=== PATIENT | male | born 1970 | race African-American/Black ===

== ENCOUNTER 2023-06-21 07:31 | Day surgery (SDC) | payer BC, SELFPAY ==
--- NOTE | 2023-06-20 13:43 | EKG ---
Test Date: 2023-06-16 Test Time: 15:48:57 Relocation Manager: POPPY MEASUREMENT RESULTS: Intervals: Rate: 69 ME: 144 QRSD: 78 QT: 386 QTc: 413 [place]: P: 82 ME: 144 QRS: -40 T: 66 INTERPRETIVE STATEMENTS: Sinus rhythm with premature atrial complexes Left axis deviation Abnormal ECG No previous ECG available for comparison Electronically Signed On 06-20-23 13:31:20 TALLIER by Zachary Hunt
[2023-06-21] MEDS ORDERED: Ringers Lactate 1,000 ML IV ONE (07:45)
[2023-06-21 08:04] VITALS: O2SAT 100
[2023-06-21] MEDS ORDERED: LIDOCAINE 1% MPF 5 ML VIAL ONE (09:39)
[2023-06-21] MEDS ORDERED: propofoL 200 MG/20 ML VIAL IV ONE ×2 (09:39→09:40)
[2023-06-21] MEDS ORDERED: GLYCOPYRROLATE 0.2 MG/ML SYR ONE (10:44)
[2023-06-21 12:51] VITALS: BP 133/83; TEMP 97
== END 2023-06-21 11:08 | disposition home or self-care (01) ==
LOC: OR 07:31
PROVIDERS: ATTEND Internal Medicine Gastroenterology
PROC: 0DBH8ZX Excision of Cecum, Via Natural or Artificial Opening Endoscopic, Diagnostic (ICD-10-PCS; 2023-06-21)
PROC: 0DB68ZX Excision of Stomach, Via Natural or Artificial Opening Endoscopic, Diagnostic (ICD-10-PCS; 2023-06-21)
PROC: 0DB78ZX Excision of Stomach, Pylorus, Via Natural or Artificial Opening Endoscopic, Diagnostic (ICD-10-PCS; 2023-06-21)
PROC: 0DBK8ZX Excision of Ascending Colon, Via Natural or Artificial Opening Endoscopic, Diagnostic (ICD-10-PCS; principal; 2023-06-21 09:15)
PROC: 0DBP8ZX Excision of Rectum, Via Natural or Artificial Opening Endoscopic, Diagnostic (ICD-10-PCS; 2023-06-21 09:15)
DX: K57.30 Diverticulosis of large intestine without perforation or abscess without bleeding (principal); K92.1 Melena; R19.4 Change in bowel habit; R10.33 Periumbilical pain; K30 Functional dyspepsia; R12 Heartburn; R14.2 Eructation; R14.0 Abdominal distension (gaseous); K29.50 Unspecified chronic gastritis without bleeding; D12.2 Benign neoplasm of ascending colon; K63.5 Polyp of colon; K64.8 Other hemorrhoids; A63.0 Anogenital (venereal) warts; K44.9 Diaphragmatic hernia without obstruction or gangrene; Z80.0 Family history of malignant neoplasm of digestive organs; I10 Essential (primary) hypertension
CPT/HCPCS: 93005; 88312; 88305; 45380; 43239; J2704; J2001; J7120

== ENCOUNTER 2023-07-31 09:42 | Day surgery (SDC) | payer BC ==
[2023-07-27 16:02] LABS: Absolute Lymphocytes (CBC) 2.5 K/uL (0.7-4.9); Hematocrit 43.8 % (39.6-49.0); Lymphocytes % 32.5 % (15.3-44.8); MCV 86.2 fL (80-100); MPV 7.6 fL (7.6-11.3); Platelets 254 thou/uL (152-406); RBC Red Blood Cell Count 5.08 M/uL (4.33-5.43)
[2023-07-27 16:18] LABS: Potassium 3.8 mEq/L (3.5-5.1)
--- NOTE | 2023-07-27 19:37 | RAD REPORT ---
EXAM DESCRIPTION: Oralia Linares (2 Views)07/27/2023 3:56 pm CLINICAL HISTORY: Preop for rectal surgery COMPARISON: None FINDINGS: The lungs appear clear of acute infiltrate. The heart is normal size IMPRESSION: No acute abnormalities displayed
[2023-07-31] MEDS ORDERED: CEFAZOLIN SODIUM 1 GM/VIAL ONE (10:00)
[2023-07-31] MEDS ORDERED: Ringers Lactate 1,000 ML IV ONE (10:00)
[2023-07-31] MEDS ORDERED: propofoL 200 MG/20 ML VIAL IV ONE (10:36)
[2023-07-31] MEDS ORDERED: MIDAZOLAM HCL 2 MG/2 ML INJ ONE (10:36)
[2023-07-31] MEDS ORDERED: LIDOCAINE 1% MPF 5 ML VIAL ONE (10:36)
[2023-07-31] MEDS ORDERED: dexAMETHasone 4 MG/ML VIAL ONE (10:36)
[2023-07-31] MEDS ORDERED: ONDANSETRON 4 MG/2 ML VIAL ONE (10:36)
[2023-07-31] MEDS ORDERED: FENTANYL CITR 100 MCG/2 ML ONE (10:37)
[2023-07-31] MEDS ORDERED: KETOROLAC 30 MG/ML INJ ONE (11:20)
[2023-07-31] MEDS: HYDROMORPHONE HCL 1 MG/ML INJ ONE ×4 (12:15→12:31)
--- NOTE | 2023-07-31 12:34 | P.BOP ---
Preoperative diagnosis: perianal mass Postoperative diagnosis: same Primary procedure: EUA, Anoscopy, rigid proctoscopy, excisional biopsy perianal mass Estimated blood loss: <10cc Specimen: mass anal canal Findings: multiple perianal mass Anesthesia: General Complications: None Drain(s): Other (surgicell) Transferred to: Recovery Room Condition: Good
[2023-07-31 12:48] VITALS: TEMP 97; O2SAT 100
[2023-07-31] MEDS ORDERED: HYDROCODONE/APAP 10/325 TAB ONE (13:07)
[2023-07-31 13:09] VITALS: BP 146/90
--- NOTE | 2023-08-01 14:27 | OP ---
Surgeon: Robert Ibrahim MD Preoperative Diagnoses: Perianal mass. Postoperative Diagnosis: Perianal mass. Procedures: Examination under anesthesia, anoscopy, rigid proctoscopy, excisional biopsy of multiple perianal masses in the anal canal. Estimated Blood Loss: Less than 10 cc. Specimen: Mass in the anal canal. Findings: Multiple perianal masses. Anesthesia: General plus local. Packing: Surgicel. Indication: This is a case of a 53-year-old patient sent to us due to perianal mass in the anal vivien l. He can be seen with close observation. It was found by the doctor, they did a biopsy of that are a. They believed it could be condyloma, even though he might have a condyloma in that area does not mean that perianal mass have to be condyloma, so he was sent to us for EUA, anoscopy and excisional b iopsy of perianal mass. The benefits, alternatives, and risks of EUA anoscopy, proctoscopy, excision biopsy of perianal mass fully explained, which include, but not limited to infection, bleeding, robbie ge to adjacent structures, anesthesia complication, recurrence, AR, and he also understands this may not relieve the symptoms. He might need more than one surgical intervention. He understood, signed a consent. Description Of Procedure: The patient was brought to the operating room, placed in supine position. Anesthesia was done without complication. The anal area was prepped and draped in a sterile fashion . The patient was placed in lithotomy position with proper protection before that. Time-out was elisa led. Then, after that, a rectal examination was done. We do indeed see some lesions that it is hard to see. This is condyloma with the hemorrhoid underneath, 1 of them is so close that we have to ope n the anoderm to be able to get this lesion on his own. See the rest of the dictation for details. Other than that, we see most of the lesions on the anal canal itself and that is why the anoscopy hel p in resection. EBL less than 10 cc. The patient examination was done by rigid proctosco py. Then, with the help of anoscopy, we were able to identify more than 1 lesion. It is in the anal canal itself or likely mention before the hemorrhoid is attached to it and 1 of them. We opened the anoderm trying to separate the hemorrhoid but have to come with the specimen itself. Once again, we have to get some gross negative margins because we cannot rule out any other pathology in that regio n, so we did that. I opened the anoderm, separate this lesion from the center, transect that with a Harmonic scalpel. The area was irrigated. Hemostasis was obtained and closed with 3-0 chromic. The re is about 2 more lesions around the area that was also present, those may look like a condyloma and so we removed that and making sure we have negative margins and sent that for specimen. Once again, we have more than 1 lesion in that region. Those areas were left to close by secondary intention. Local anesthesia was applied. Surgicel was placed in that region. Pressure was applied and then aft er that, there was no bleeding. I proceeded to remove the anoscope. The patient tolerated the proce dure well. The patient was sent to recovery in stable condition. Disposition: Home. Activity: As tolerated. No heavy lifting. Follow up in my office in 1 week. Call for appointment at [phone]. Sitz baths 4 times a day and after every bowel movement. VIVIAN/GELACIO Voice ID: [id number] Report ID: [id number]
== END 2023-07-31 13:30 | disposition home or self-care (01) ==
LOC: OR 09:42
PROVIDERS: ATTEND Surgery
PROC: 0DJD8ZZ Inspection of Lower Intestinal Tract, Via Natural or Artificial Opening Endoscopic (ICD-10-PCS; 2023-07-31)
PROC: 0DBQ8ZX Excision of Anus, Via Natural or Artificial Opening Endoscopic, Diagnostic (ICD-10-PCS; principal; 2023-07-31 12:45)
DX: A63.0 Anogenital (venereal) warts (principal)
CPT/HCPCS: 85025; 80048; 36415; 88305; 71046; 46922; 45300; J2704; J1100; J2001; J2250; J3010; J1170 ×2; J2405; J7120; J0690; 88304

== ENCOUNTER → 2023-10-04 | Emergency (ER) | payer BC ==
[~2023-10-04] MED LIST: DIPHENOX/ATROP SULF 1 TAB PO ONE; NA CHLORIDE 0.9% 1,000 ML ONE; ONDANSETRON 4 MG/2 ML VIAL ONE; PROMETHAZINE 25 MG TABLET ONE
--- OUTSIDE RECORDS SUMMARY | 2023-10-04 04:52 | XMS REPORT | Continuity of Care Document ---
Author Name Unknown Address [address] [facility] [address] [place] [id number] [facility] thconnect Address [address] [facility] [address] [place] [address] Care Team Providers Care Cardiopulmonary Physical Therapist Name Role Phone BETZAIDA Attending Clinician Unavailable Mable Penny Attending Clinician [phone] Kayleen Rg DO Attending Clinician Doctor Unassigned, [place] Attending Clinician U CAROL Vazquez Attending Clinician Unavailabl e BETZAIDA Admitting Clinician Unavailable Payers Payer Name Policy Type Policy Number Effective Date Expirati on Date Source [facility] [id number] 2 00:00:00 [facility] [id number] 10-15 00:00:00 [facility] [id number] 2012 00:00:[place] [id number] 2023 00:00:00 GROUP \T\ [employer] [id number] 1989 00:00:00 [place] [id number] 2021 00:00:00 Problems Condition Name Condition Details Condition Category Status Onset Date Resolution Date Last Treatment Date Treating Clinician Comments Source Pain of bilateral knee joints Pain of Bilateral Knee Joints Problem Active 03-21 00:00: 00 [facility] Mixed hyperlipid emia Mixed Hyperlipid emia Problem Active 03-21 00:00: 00 [facility] Essential hypertensi on Essential Hypertensi on Problem Active 03-21 00:00: 00 [facility] Chronic obstructiv e lung disease Chronic Obstructiv e Lung Disease Problem Active 03-21 00:00: 00 [facility] Irritable bowel syndrome Irritable Bowel Syndrome Problem Active 03-21 00:00: 00 [facility] Chronic low back pain Chronic Low Back Pain Problem Active 03-21 00:00: 00 [facility] Marijuana user Marijuana User Problem Active 03-21 00:00: 00 [facility] Anxiety Anxiety Problem Active 08-04 00:00: 00 [facility] No known active problems No known active problems Disease [facility] Allergies, Adverse Reactions, Alerts Allergy Name Allergy Type Status Severity Reaction(s) Onset Date Inactive Date Treating Clinician Comments Source Iodine Allergy to substanc e Active Anaphylaxis 07-17 00:00: 00 [facility] Iodine Propensi ty to adverse reaction s Active Unknown - See comments 12-05 00:00: 00 [facility] Tramadol Propensi ty to adverse reaction s Active Unknown - See comments 12-05 00:00: 00 [facility] TRAMADOL DRUG INGREDI Active Unknown-Cmnt 12-05 00:00: 00 [facility] IODINE DRUG INGREDI Active Unknown-Cmnt 12-05 00:00: 00 [facility] NO KNOWN ALLERGIE S Drug Class Active [facility] Metformi n Allergy to substanc e Active [facility] Tramadol Allergy to substanc e Active [facility] Social History Social Habit Start Date Stop Date Quantity Comments Source Exposure to SARS-CoV-2 (event) Not sure [facility] Sex Assigned At 1970 00:00:00 1970 00:00:00 [facility] Smoking Status Start Date Stop Date Source Light Tobacco Smoker [facility] Unknown if ever smoked [facility] Medications Ordered Medication Name Filled Medication Name Start Date Stop Date Current Medication? Ordering Clinician Indication Dosage Frequency Signature (SIG) Comments Components Source epinephrine 0.3 mg/0.3 mL injection, auto-inject or INJECT DIRECTED epinephrine 0.3 mg/0.3 mL injection, auto-inject or INJECT DIRECTED 03-21 00:00: 00 No epinephrin e 0.3 mg/0.3 mL injection, auto-injec tor INJECT DIRECTED [facility] HYDROcodone -acetaminop hen (NORCO 5) 5-325 mg tablet 1 tablet 12-05 20:45: 00 12-05 19:39 :00 No 1{tbl} 1 tablet, Oral, ONCE, 1 dose, 12/05/20 at 1545, HAMIDA [facility] amlodipine 5 mg tablet TAKE 1 TABLET BY MOUTH EVERY DAY HOLD IF TOP BLOOD PRESSURE IS ABOVE 110 amlodipine 5 mg tablet TAKE 1 TABLET BY MOUTH EVERY DAY HOLD IF TOP BLOOD PRESSURE IS ABOVE 110 No amlodipine 5 mg tablet TAKE 1 TABLET BY MOUTH EVERY DAY HOLD IF TOP BLOOD PRESSURE IS ABOVE 110 [facility] acetylcyste ine 600 mg capsule Take 1 capsule twice a day by oral route. acetylcyste ine 600 mg capsule Take 1 capsule twice a day by oral route. No 1capsul e(s) BID acetylcyst eine 600 mg capsule Take 1 capsule twice a day by oral route. [facility] albuterol sulfate HFA 90 mcg/actuati on aerosol inhaler Inhale 2 puffs every 4-6 hours by inhalation route. albuterol sulfate HFA 90 mcg/actuati on aerosol inhaler Inhale 2 puffs every 4-6 hours by inhalation route. No 2puff(s ) Q5H albuterol sulfate HFA 90 mcg/actuat ion aerosol inhaler Inhale 2 puffs every 4-6 hours by inhalation route. [facility] amlodipine 5 mg tablet Take 1 tablet every day by oral route for 90 days. amlodipine 5 mg tablet Take 1 tablet every day by oral route for 90 days. No 1 Q1D amlodipine 5 mg tablet Take 1 tablet every day by oral route for 90 days. [facility] EpiPen 2-Timmy 0.3 mg/0.3 mL injection, auto-inject or Take 1 auto as needed by injection route. EpiPen 2-Timmy 0.3 mg/0.3 mL injection, auto-inject or Take 1 auto as needed by injection route. No 1auto(s ) EpiPen 2-Timmy 0.3 mg/0.3 mL injection, auto-injec tor Take 1 auto as needed by injection route. [facility] fenofibrate nanocrystal lized 145 mg tablet Take 1 tablet every day by oral route for 90 days. fenofibrate nanocrystal lized 145 mg tablet Take 1 tablet every day by oral route for 90 days. No 1 Q1D fenofibrat e nanocrysta llized 145 mg tablet Take 1 tablet every day by oral route for 90 days. [facility] acetylcyste ine 600 mg capsule Take 1 capsule twice a day by oral route. acetylcyste ine 600 mg capsule Take 1 capsule twice a day by oral route. No 1capsul e(s) BID acetylcyst eine 600 mg capsule Take 1 capsule twice a day by oral route. [facility] albuterol sulfate HFA 90 mcg/actuati on aerosol inhaler Inhale 2 puffs every 4-6 hours by inhalation route. albuterol sulfate HFA 90 mcg/actuati on aerosol inhaler Inhale 2 puffs every 4-6 hours by inhalation route. No 2puff(s ) Q5H albuterol sulfate HFA 90 mcg/actuat ion aerosol inhaler Inhale 2 puffs every 4-6 hours by inhalation route. [facility] amlodipine 5 mg tablet Take 1 tablet every day by oral route for 90 days. amlodipine 5 mg tablet Take 1 tablet every day by oral route for 90 days. No 1 Q1D amlodipine 5 mg tablet Take 1 tablet every day by oral route for 90 days. [facility] EpiPen 2-Timmy 0.3 mg/0.3 mL injection, auto-inject or Take 1 auto as needed by injection route. EpiPen 2-Timmy 0.3 mg/0.3 mL injection, auto-inject or Take 1 auto as needed by injection route. No 1auto(s ) EpiPen 2-Timmy 0.3 mg/0.3 mL injection, auto-injec tor Take 1 auto as needed by injection route. [facility] fenofibrate nanocrystal lized 145 mg tablet Take 1 tablet every day by oral route for 90 days. fenofibrate nanocrystal lized 145 mg tablet Take 1 tablet every day by oral route for 90 days. No 1 Q1D fenofibrat e nanocrysta llized 145 mg tablet Take 1 tablet every day by oral route for 90 days. [facility] No known medications No [facility] No known medications No [facility] Vital Signs Vital Name Observation Time Observation Value Comments S ource BP Systolic 2023-03-21 00:00:00 110 mm[Hg] [facility] BMI (Body Mass Index) 2023-03-21 00:00:00 29 kg/m2 [facility] BP Diastolic 2023-03-21 00:00:00 82 mm[Hg] [facility] Body Weight 2023-03-21 00:00:00 3616 [oz_av] [facility] Height 2023-03-21 00:00:00 74 [in_i] [facility] BP Diastolic 2021-08-09 00:00:00 79 mm[Hg] [facility] Height 2021-08-09 00:00:00 74 [in_i] [facility] BMI (Body Mass Index) 2021-08-09 00:00:00 27 kg/m2 [facility] BP Systolic 2021-08-09 00:00:00 136 mm[Hg] [facility] Body Weight 2021-08-09 00:00:00 3360 [oz_av] [facility] BP Diastolic 2021-08-04 00:00:00 89 mm[Hg] [facility] Height 2021-08-04 00:00:00 74 [in_i] [facility] BMI (Body Mass Index) 2021-08-04 00:00:00 26.8 kg/m2 [facility] BP Systolic 2021-08-04 00:00:00 162 mm[Hg] [facility] Body Weight 2021-08-04 00:00:00 3337.6 [oz_av] [facility] Systolic blood pressure 2020-12-05 19:29:00 139 mm[Hg] [facility] Diastolic blood pressure 2020-12-05 19:29:00 84 mm[Hg] [facility] Heart rate 2020-12-05 19:29:00 87 /min [facility] Body temperature 2020-12-05 19:29:00 37.22 Yamila [facility] Respiratory rate 2020-12-05 19:29:00 18 /min [facility] Body weight 2020-12-05 19:29:00 95.255 kg [facility] Oxygen saturation in Arterial blood by Pulse oximetry 2020-12-05 19:29:00 99 /min [facility] Procedures Procedure Date / Time Performed Performing Clinician Source CONSENT/REFUSAL FOR DIAGNOSIS AND TREATMENT 2020-12-05 19:23:08 Doctor Unassigned, [place] [facility] NOTICE OF PRIVACY PRACTICES 2020-12-05 19:22:35 Doctor Unassigned, [place] [facility] - PRESCRIPTION / ORDER 2013-11-28 05:01:00 Doctor Unassigned, [place] [facility] Removal of Mari[facility] Appendectomy [facility] Knee Surgery [facility] Plan of Care Planned Activity Planned Date Details Comments Source Diagnostic Test Pending 2021-08-09 00:00:00 rapid flu (A+B) [code = rapid flu (A+B)] [facility] Diagnostic Test Pending 2021-08-09 00:00:00 rapid SARS CoV 2 Ag, QL IA, respiratory specimen [code = rapid SARS CoV 2 Ag, QL IA, respiratory specimen] [facility] Instructions [facility] Encounters Start Date/Time End Date/Time Encounter Type Admission Type Attending Clinicians Care Facility Care Department Encounter ID Source 2021-05-16 20:41:43 Emergency [facility] [id number] [facility] 2023-06-14 00:00:00 2023-06-14 00:00:00 Outpatient [facility] [id number] 2023-05-10 00:00:00 2023-05-10 00:00:00 Outpatient [facility] [id number] [facility] 2023-05-05 00:00:00 2023-05-05 00:00:00 Outpatient [facility] [id number] [facility] 2023-04-05 00:00:00 2023-04-05 00:00:00 Outpatient [facility] [id number] [facility] 2023-03-21 00:00:00 2023-03-21 00:00:00 Outpatient [facility] [id number] [facility] 2023-03-21 00:00:00 2023-03-21 00:00:00 Rony Ibarra, DO: [address], [address] , [place] [address] , Ph. [facility], DR. IBARRA [id number] [facility] 2023-01-17 00:00:00 2023-01-17 00:00:00 Outpatient [facility] [id number] [facility] 2022-12-13 00:00:00 2022-12-13 00:00:00 Outpatient [facility] [id number] [facility] 2022-11-30 13:11:30 2022-11-30 13:11:30 Outpatient [facility] [id number] Usman Henderson Markel 2022-11-08 00:00:00 2022-11-08 00:00:00 Outpatient [facility] [id number] [facility] 2022-11-03 13:08:01 2022-11-03 13:08:01 Outpatient [facility] [id number] Usman Jean Baptiste 2022-10-27 15:38:51 2022-10-27 15:38:51 Outpatient [facility] [id number] Usman Jean Baptiste 2022-10-04 00:00:00 2022-10-04 00:00:00 Outpatient [facility] [id number] [facility] 2022-08-30 00:00:00 2022-08-30 00:00:00 Outpatient [facility] [id number] [facility] 2022-08-30 00:00:00 2022-08-30 00:00:00 Outpatient [facility] [id number] [facility] 2022-07-27 00:00:00 2022-07-27 00:00:00 Outpatient [facility] [id number] [facility] 2021-10-29 03:29:00 2021-10-29 03:29:00 Outpatient [facility] [id number] [facility] 2021-10-29 03:29:00 2021-10-29 03:29:00 Outpatient [facility] [id number] [facility] 2021-09-24 04:03:00 2021-09-24 04:03:00 Outpatient [facility] [id number] [facility] 2021-08-20 04:31:00 2021-08-20 04:31:00 Outpatient [facility] [id number] [facility] 2021-08-09 11:05:00 2021-08-09 11:05:00 Outpatient [facility] [id number] [facility] 2021-08-09 00:00:00 2021-08-09 00:00:00 Outpatient Mable Penny [facility] [id number] 2021-08-09 00:00:00 2021-08-09 00:00:00 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 [facility] [id number] [facility] 2021-08-04 00:00:00 2021-08-04 00:00:00 Outpatient Mable Penny [facility] [id number] 2021-06-28 11:25:00 2021-06-28 11:25:00 Outpatient [facility] [id number] [facility] 2021-06-28 11:25:00 2021-06-28 11:25:00 Outpatient [facility] [id number] [facility] 2020-12-05 14:28:00 2020-12-05 15:09:00 Emergency Kayleen Rg [facility] [id number] [facility] 2020-12-05 00:00:00 2020-12-05 00:00:00 Orders Only Doctor Unassigned, [place] [facility] [id number] [facility] 2016-10-06 23:59:00 2016-10-06 23:59:00 Outpatient CAROL KNOWLES [facility] RAD [id number] [facility] 2013-11-28 00:00:00 2013-11-28 00:00:00 Orders Only Doctor Unassigned, [place] [facility] [id number] [facility] Results Test Description Test Time Test Comments Results Result Co mments Source CULTURE, URINE 2022-12-02 13:52:49 SPECIMEN NUMBER: [id number] CULTURE, URINE SPECIMEN NUMBER: [id number] SPECIMEN COMMENT: URINE SOURCE: URINE REPORT STATUS: FINAL FINAL REPORT: 12/02/2022 NO GROWTH AFTER 36 HOURS INCUBATION UNLESS OTHERWISE INDICATED, ALL TESTING PERFORMED AT [facility] [address] [place] [address] LIFE SCIENCE TEACHER: NANDA GUTIÉRREZ M.D. CLIA NUMBER [id number] [facility] [place] [id number] [facility], [id number] 09:25:00* Test Item Value Reference Range Interpretation Comme nts Negative (test code = Negative) xxx [facility]
[2023-10-04 05:33] LABS: Absolute Basophils 0.1 K/uL (0-0.5); Absolute Eosinophils 0.1 K/uL (0-0.5); Absolute Lymphocytes (CBC) 2.6 K/uL (0.7-4.9); Absolute Monocytes 0.9 K/uL (0.1-1.3); Absolute Neutrophil 7.3 K/uL (1.8-8.0); Basophils % 0.8 % (0-1.3); Eosinophils % 0.9 % (0-4.4); Hematocrit 46.4 % (39.6-49.0); Hemoglobin 15.6 g/dL (13.6-17.9); Lymphocytes % 23.7 % (15.3-44.8); MCH 29.3 pg (27.0-35.0); MCHC 33.6 g/dL (32.0-36.0); MCV 87.2 fL (80-100); MPV 7.6 fL (7.6-11.3); Monocytes % 8.1 % (3.3-12.3); Neutrophils % 66.5 % (41.7-73.7); Nucleated Red Blood Cells % 0.1 % (0-0); Platelets 307 thou/uL (152-406); RBC Red Blood Cell Count 5.32 M/uL (4.33-5.43); Red Cell Distribution Width 15.2 % (12.1-15.2)
[2023-10-04 05:48] LABS: SARS-CoV-2 Antigen CONTROL BLUE LINE VIS/BG OK; SARS-CoV-2 Antigen Rapid Res Negative (Negative)
[2023-10-04 05:49] LABS: Albumin 3.9 g/dL (3.4-5.0); Anion Gap 11.9 mEq/L (5.0-15.0); Bilirubin Total 0.6 mg/dL (0.2-1.0); Globulin 3.9 g/dL (2.3-3.5); Potassium 3.9 mEq/L (3.5-5.1); Protein, Total 7.8 g/dL (6.4-8.2)
--- NOTE | 2023-10-04 06:59 | EDPHYS ---
Physician Documentation [facility] Name: Aden Jorgensen III Age: 53 yrs Sex: Male : 1970 Arrival Date: 10/04/2023 Time: 04:49 Bed 6 Private MD: ED Physician Ace Del Castillo HPI: 10/03 04:58 This 53 yrs old Black Male presents to ER via Unassigned with complaints of Diarrhea, sp4 Decreased Appetite. 06:04 53 Male with history of hypertension presents with acute onset of nausea, lower sp4 abdominal pain, watery diarrhea. . Historical: - Allergies: 04:59 Iodine; ha1 04:59 tramadol; ha1 - PMHx: 04:59 Hypertensive disorder; ha1 - Immunization history:: Adult Immunizations unknown. - Social history:: Smoking status: Patient/guardian denies using tobacco, Stopped _ months ago 1. - Family history:: not pertinent. ROS: 06:04 Constitutional: Negative for fever, chills, and weight loss, positive nausea and sp4 diarrhea 06:04 All other systems are negative, Exam: 06:04 Constitutional: This is a well developed, well nourished patient who is awake, alert, sp4 and in no acute distress. Head/Face: Normocephalic, atraumatic. Eyes: Pupils equal round and reactive to light, extra-ocular motions intact. Lids and lashes normal. Conjunctiva and sclera are not injected. Cornea within normal limits. Periorbital areas with no swelling, redness, or edema. ENT: Nares patent. No nasal discharge, no septal abnormalities noted. Tympanic membranes are normal and external auditory canals are clear. Oropharynx with no redness, swelling, or masses, exudates, or evidence of obstruction, uvula midline. Mucous membranes moist. Neck: Trachea midline, no thyromegaly or masses palpated, and no cervical lymphadenopathy. Supple, full range of motion without nuchal rigidity, or vertebral point tenderness. Chest/axilla: Normal chest wall appearance and motion. Nontender with no deformity. No lesions are appreciated. Cardiovascular: Regular rate and rhythm with a normal S1 and S2. No gallops, murmurs, or rubs. Normal PMI, no JVD. No pulse deficits. Respiratory: Lungs have equal breath sounds bilaterally, clear to auscultation and percussion. No rales, rhonchi or wheezes noted. No increased work of breathing, no retractions or nasal flaring. Abdomen/GI: Soft, with normal bowel sounds. No distension or tympany. No guarding or rebound. No evidence of tenderness throughout. Back: No spinal tenderness. No costovertebral tenderness. Skin: Warm, dry with normal turgor. Normal color with no rashes, no lesions, and no evidence of cellulitis. MS/ Extremity: Pulses equal, no cyanosis. Neurovascular intact. Full, normal range of motion. Neuro: Awake and alert, GCS 15, oriented to person, place, time, and situation. Cranial nerves II-XII grossly intact. Motor strength 5/5 in all extremities. Sensory grossly intact. Psych: Awake, alert, with orientation to person, place and time. Behavior, mood, and affect are within normal limits Vital Signs: 04:59 BP 155 / 101; Pulse 86; Resp 17 S; Temp 97.7(O); Pulse Ox 99% on R/A; Weight 102.06 kg; ha1 Height 6 ft. 2 in. ; 05:20 BP 143 / 86; Pulse 71; Resp 17 S; Pulse Ox 100% on R/A; ha1 05:50 BP 145 / 86; Pulse 66; Resp 17; Pulse Ox 100% ; jj7 06:51 BP 137 / 78; Pulse 70; Resp 16; Pulse Ox 100% ; Pain 0/10; jj7 04:59 Body Mass Index 28.89 (102.06 kg, 187.96 cm) ha1 06:51 Pain Scale: Adult j7 MDM: 05:12 Patient medically screened. sp4 06:53 ED course: COMPARISON: No relevant prior studies available. FINDINGS: Lung bases: sp4 Unremarkable. No mass. No consolidation. ABDOMEN: Liver: Unremarkable. No mass. Gallbladder and bile ducts: Unremarkable. No calcified stones. No ductal dilation. Pancreas: Unremarkable. No mass. No ductal dilation. Spleen: Unremarkable. No splenomegaly. Adrenals: Unremarkable. No mass. Kidneys and ureters: Unremarkable. No solid mass. No hydronephrosis. Stomach and bowel: Rectal mucosal thickening. Scattered colonic diverticula. No evidence of diverticulitis. No obstruction. PELVIS: Appendix: No findings to suggest acute appendicitis. Bladder: Unremarkable. Reproductive: Unremarkable as visualized. ABDOMEN and PELVIS: Intraperitoneal space: Unremarkable. No free air. No significant fluid collection. Bones/joints: No acute fracture. No dislocation. Soft tissues: Unremarkable. Vasculature: Unremarkable. No abdominal aortic aneurysm. Lymph nodes: Unremarkable. No enlarged lymph nodes. IMPRESSION: 1. Rectal mucosal thickening. Correlate with any concern for mild proctitis. 2. Scattered colonic diverticula. No evidence of diverticulitis.. 06:56 Differential diagnosis: Nonspecific abd pain, gastritis, diverticulitis, viral sp4 gastroenteritis, gastroenteritis. Data reviewed: vital signs, nurses notes, lab test result(s), radiologic studies, CT scan. Consideration of Admission/Observation Escalation of care including admission/observation considered. ED course: Has clear signs and symptoms of food poisoning. Recommend clear liquid diet for 24 hours. 3 days of work. Lomotil and Phenergan as needed for symptom control . 10/03 04:58 Order name: SARS RAPID; Complete Time: 06:53 4 10/03 04:58 Order name: Influenza Screen (a \T\ B); Complete Time: 06:53 sp4 10/03 05:09 Order name: CBC with Diff; Complete Time: 06:53 sp4 10/03 05:09 Order name: CMP; Complete Time: 06:53 sp4 10/03 05:09 Order name: Lipase; Complete Time: 06:53 sp4 10/03 05:09 Order name: Urinalysis w/ reflexes 4 10/03 05:22 Order name: CT Abd/Pelvis - IV Contrast Only 4 10/03 05:09 Order name: IV Saline Lock; Complete Time: 05:16 sp4 10/03 05:09 Order name: Labs collected and sent; Complete Time: 05:16 4 Administered Medications: 05:21 Drug: NS 0.9% IV 1000 ml IV at 1 bolus Per protocol; 1000 mL bolus Route: IV; Rate: 1 jj7 bolus; Site: right antecubital; 07:08 Follow up: Response: No adverse reaction; IV Status: Completed infusion; IV Intake: ha1 1000ml 05:21 Drug: Ondansetron IVP 8 mg IVP once; over 2 minutes Route: IVP; Site: right antecubital;jj7 06:22 Follow up: Response: No adverse reaction; Marked relief of symptoms ha1 05:29 Drug: Promethazine PO 25 mg PO once Route: PO; jj7 06:21 Follow up: Response: No adverse reaction; Marked relief of symptoms ha1 05:29 Drug: Diphenoxylate-Atropine PO 2 tabs PO once Route: PO; 7 06:21 Follow up: Response: No adverse reaction; Marked relief of symptoms ha1 05:38 Drug: NS 0.9% IV 1000 ml IV at 1 bolus Per protocol; 1000 mL bolus Route: IV; Rate: 1 ha1 bolus; Site: right antecubital; 07:07 Follow up: Response: No adverse reaction; IV Status: Completed infusion; IV Intake: ha1 1000ml Disposition Summary: 10/04/23 06:58 Discharge Ordered Notes: Work release for 3 days Location: Home sp4 Problem: new sp4 Symptoms: have improved sp4 Condition: Stable sp4 Diagnosis - Acute food poisoning, acute gastroenteritis sp4 Followup: sp4 - With: Private Physician - When: 7 - 10 days - Reason: Recheck today's complaints Discharge Instructions: - Discharge Summary Sheet sp4 - Food Poisoning sp4 Forms: - Patient Portal Instructions sp4 Prescriptions: - Lomotil 2.5-0.025 mg Oral tablet - take 1 tablet ORAL route every 6 hours As needed; 30 tablet; Refills: 0, sp4 Product Selection Permitted - promethazine 25 mg Oral tablet - take 1 tablet ORAL route every 6 hours As needed PRN nausea; 30 tablet; sp4 Refills: 0, Product Selection Permitted Signatures: Dispatcher [employer] Negra Rodriguez RN RN ha1 Preston Ye RN RN jj7 Ace Del Castillo MD MD sp4
--- NOTE | 2023-10-04 06:59 | ER ---
Nurse's Notes [facility] Name: Aden Jorgensen III Age: 53 yrs Sex: Male : 1970 Arrival Date: 10/04/2023 Time: 04:49 Bed 6 Private MD: Diagnosis: Acute food poisoning, acute gastroenteritis Presentation: 10/03 04:59 Chief complaint: Patient states: I HAVE BEEN HAVING A BAD DIARRHEA AND ABDOMINAL PAIN ha1 SINCE YESTERDAY. NO N/V. 04:59 Coronavirus screen:. Ebola Screen: No symptoms or risks identified at this time. ha1 Initial Sepsis Screen: Does the patient meet any 2 criteria? No. Patient's initial sepsis screen is negative. Does the patient have a suspected source of infection? No. Patient's initial sepsis screen is negative. Risk Assessment: Do you want to hurt yourself or someone else? Patient reports no desire to harm self or others. Onset of symptoms was October 04, 2023. 04:59 Method Of Arrival: Ambulatory ha1 04:59 Acuity: GLENIS 3 ha1 05:13 Coronavirus screen: Vaccine status: Patient reports receiving the 1st dose of the Covid ha1 vaccine. Triage Assessment: 04:59 General: Appears uncomfortable, Behavior is cooperative, anxious. Pain: Complains of ha1 pain in abdomen Pain does not radiate. Pain currently is 9 out of 10 on a pain scale. Quality of pain is described as crampy, throbbing. Neuro: Level of Consciousness is awake, alert, obeys commands, Oriented to person, place, time, situation. Cardiovascular: Capillary refill < 3 seconds Patient's skin is warm and dry. Respiratory: Airway is patent Respiratory effort is even, unlabored, Respiratory pattern is regular, symmetrical. GI: Abdomen is flat, non-distended, Bowel sounds present X 4 quads. Reports lower abdominal pain, upper abdominal pain, diarrhea. : No signs and/or symptoms were reported regarding the genitourinary system. Derm: Skin is healthy with good turgor, Skin is normal. Musculoskeletal: Circulation, motion, and sensation intact. Range of motion:. Historical: - Allergies: 04:59 Iodine; ha1 04:59 tramadol; ha1 - PMHx: 04:59 Hypertensive disorder; ha1 - Immunization history:: Adult Immunizations unknown. - Social history:: Smoking status: Patient/guardian denies using tobacco, Stopped _ months ago 1. - Family history:: not pertinent. Screenin:59 [facility] ED Fall Risk Assessment (Adult) History of falling in the last 3 months, ha1 including since admission No falls in past 3 months (0 pts) Confusion or Disorientation No (0 pts) Intoxicated or Sedated No (0 pts) Impaired Gait No (0 pts) Mobility Assist Device Used No (0 pt) Altered Elimination No (0 pt) Score/Fall Risk Level 0 - 2 = Low Risk Oriented to surroundings, Maintained a safe environment, Hourly rounding (assess needs \T\ fall precautionary measures) done. Abuse screen: Denies threats or abuse. Denies injuries from another. Nutritional screening: No deficits noted. Tuberculosis screening: No symptoms or risk factors identified. Assessment: 04:59 Reassessment: SEE TRIAGE ASSESSMENT. ha1 06:00 Reassessment: Patient and/or family updated on plan of care and expected duration. Pain ha1 level reassessed. Patient is alert, oriented x 3, equal unlabored respirations, skin warm/dry/pink. Patient states feeling better. Patient states symptoms have improved. Vital Signs: 04:59 BP 155 / 101; Pulse 86; Resp 17 S; Temp 97.7(O); Pulse Ox 99% on R/A; Weight 102.06 kg; ha1 Height 6 ft. 2 in. ; 05:20 BP 143 / 86; Pulse 71; Resp 17 S; Pulse Ox 100% on R/A; ha1 05:50 BP 145 / 86; Pulse 66; Resp 17; Pulse Ox 100% ; jj7 06:51 BP 137 / 78; Pulse 70; Resp 16; Pulse Ox 100% ; Pain 0/10; jj7 04:59 Body Mass Index 28.89 (102.06 kg, 187.96 cm) ha1 06:51 Pain Scale: Adult j7 ED Course: 04:52 Patient arrived in ED. ra3 04:58 Ace Del Castillo MD is Attending Physician. sp4 04:59 Patient has correct armband on for positive identification. Placed in gown. Bed in low ha1 position. Call light in reach. Side rails up X 1. 04:59 Arm band placed on left wrist. ha1 05:09 Client placed on continuous cardiac and pulse oximetry monitoring. NIBP monitoring kmf applied. surveillance monitor on. 05:09 Inserted saline lock: 20 gauge in right antecubital area, using aseptic technique. kmf Blood collected. 05:10 Triage completed. ha1 05:16 Influenza Screen (a \T\ B) Sent. jj7 05:16 SARS RAPID Sent. jj7 06:14 CT Abd/Pelvis - IV Contrast Only In Process Unspecified. EDMS 07:06 No provider procedures requiring assistance completed. IV discontinued, intact, ha1 bleeding controlled, No redness/swelling at site. Pressure dressing applied. 07:07 Provided Education on: medication administration . ha1 Administered Medications: 05:21 Drug: NS 0.9% IV 1000 ml IV at 1 bolus Per protocol; 1000 mL bolus Route: IV; Rate: 1 jj7 bolus; Site: right antecubital; 07:08 Follow up: Response: No adverse reaction; IV Status: Completed infusion; IV Intake: ha1 1000ml 05:21 Drug: Ondansetron IVP 8 mg IVP once; over 2 minutes Route: IVP; Site: right antecubital;jj7 06:22 Follow up: Response: No adverse reaction; Marked relief of symptoms ha1 05:29 Drug: Promethazine PO 25 mg PO once Route: PO; jj7 06:21 Follow up: Response: No adverse reaction; Marked relief of symptoms ha1 05:29 Drug: Diphenoxylate-Atropine PO 2 tabs PO once Route: PO; jj7 06:21 Follow up: Response: No adverse reaction; Marked relief of symptoms ha1 05:38 Drug: NS 0.9% IV 1000 ml IV at 1 bolus Per protocol; 1000 mL bolus Route: IV; Rate: 1 ha1 bolus; Site: right antecubital; 07:07 Follow up: Response: No adverse reaction; IV Status: Completed infusion; IV Intake: ha1 1000ml Medication: 07:07 VIS not applicable for this client. ha1 Intake: 07:07 IV: 1000ml; Total: 1000ml. ha1 07:08 IV: 1000ml; Total: 2000ml. ha1 Outcome: 06:58 Discharge ordered by MD. castro 07:07 Discharged to home ambulatory, ha1 07:07 Condition: stable 07:07 Discharge instructions given to patient, Instructed on discharge instructions, follow up and referral plans. medication usage, Demonstrated understanding of instructions, follow-up care, medications, Prescriptions given X 2, 07:08 Patient left the ED. ha1 Signatures: Dispatcher [employer] EDNegra Bellamy RN RN ha1 Preston Ye RN RN jj7 Ace Del Castillo MD MD sp4 Tasha Camarena [facility] Triny Sargent ra3 Corrections: (The following items were deleted from the chart) 05:10 05:09 Inserted saline lock: 20 gauge in right antecubital area, using aseptic kmf technique. kmf
[2023-10-04 07:25] VITALS: BP 137/78; TEMP 97.7; O2SAT 100
--- NOTE | 2023-10-04 11:13 | RAD REPORT ---
EXAM DESCRIPTION: CT - Abdomen Pelvis W Contrast - 10/04/2023 6:47 am CLINICAL HISTORY: The patient is 53 years old and is Male; ABD PAIN TECHNIQUE: Axial computed tomography images of the abdomen and pelvis with intravenous contrast. S agittal and coronal reformatted images were created and reviewed. This CT exam was performed using one or more of the following dose reduction techniques: automated exposure control, adjustment of t he mA and/or kV according to patient size, and/or use of iterative reconstruction technique. COMPARISON: No relevant prior studies available. FINDINGS: Lung bases: Unremarkable. No mass. No consolidation. ABDOMEN: Liver: Unremarkable. No mass. Gallbladder and bile ducts: Unremarkable. No calcified stones. No ductal dilation. Pancreas: Unremarkable. No mass. No ductal dilation. Spleen: Unremarkable. No splenomegaly. Adrenals: Unremarkable. No mass. Kidneys and ureters: Unremarkable. No solid mass. No hydronephrosis. Stomach and bowel: Rectal mucosal thickening. Scattered colonic diverticula. No evidence of diverticulitis. No obstruction. PELVIS: Appendix: No findings to suggest acute appendicitis. Bladder: Unremarkable. Reproductive: Unremarkable as visualized. ABDOMEN and PELVIS: Intraperitoneal space: Unremarkable. No free air. No significant fluid collection. Bones/joints: No acute fracture. No dislocation. Soft tissues: Unremarkable. Vasculature: Unremarkable. No abdominal aortic aneurysm. Lymph nodes: Unremarkable. No enlarged lymph nodes. IMPRESSION: 1. Rectal mucosal thickening. Correlate with any concern for mild proctitis. 2. Scattered colonic diverticula. No evidence of diverticulitis. Electronically signed by: Bashir Parker MD 10/04/2023 06:34 AM CDT Due to temporary technical issues with the PACS/Fluency reporting system, reports are being signed by the in house radiologist without review as a courtesy to ensure prompt reporting. The interpreting r adiologist is fully responsible for the content of the report.
== END ==
LOC: ER 04:49
DX: A05.9 Bacterial foodborne intoxication, unspecified (principal); K52.9 Noninfective gastroenteritis and colitis, unspecified; Z11.52 Encounter for screening for COVID-19; Z88.5 Allergy status to narcotic agent; Z88.8 Allergy status to other drugs, medicaments and biological substances
CPT/HCPCS: 85025; 36415; 83690; 80053; 87804 ×2; 74177; 87811; Q9967; Q0169; J2405 ×2; J7030 ×2

== ENCOUNTER 2024-04-25 16:37 | Emergency (ER) | payer BC ==
--- OUTSIDE RECORDS SUMMARY | 2024-04-25 16:40 | XMS REPORT | Continuity of Care Document ---
Author Name Unknown Address [address] [facility] [address] [place] [address] [facility] thconnect Address [address] [facility] [address] [place] [address] Care Team Providers Care Customer Consultant Name Role Phone WATERS_S Attending Clinician Unavailable Mable Penny Attending Clinician [phone] Kayleen Rg DO Attending Clinician [phone] Doctor Unassigned, [place] Attending Clinician U CAROL Vazquez Attending Clinician Unavailabl e MAHOGANY_Noah Admitting Clinician Unavailable Payers Payer Name Policy Type Policy Number Effective Date Expiration Date Source [facility] [id number] 2 00:00:00 [facility] [id number] 2012 00:00:00 ICF [id number] 2012 00:00:00 [facility] 53 [id number] [facility] BCBS - BCBS Choice PPO/Federal empl PPO 53 [id number] [facility] [place]HMO[place] [id number] 2023 00:00:00 GROUP \T\ PENSION ADMINISTRATORS [id number] 1989 00:00:00 [place] [id number] 2021 00:00:00 Problems Condition Name Condition Details Condition Category Status Onset Date Resolution Date Last Treatment Date Treating Clinician Comments Source Pain of bilateral knee joints Pain of Bilateral Knee Joints Problem Active 03-21 00:00: 00 [place] [facility] Mixed hyperlipid emia Mixed Hyperlipid emia Problem Active 03-21 00:00: 00 [place] [facility] Essential hypertensi on Essential Hypertensi on Problem Active 03-21 00:00: 00 [facility] Chronic obstructiv e lung disease Chronic Obstructiv e Lung Disease Problem Active 03-21 00:00: 00 [facility] Irritable bowel syndrome Irritable Bowel Syndrome Problem Active 03-21 00:00: 00 [facility] Chronic low back pain Chronic Low Back Pain Problem Active 03-21 00:00: 00 [facility] Marijuana user Marijuana User Problem Active 03-21 00:00: 00 [facility] Anxiety Anxiety Problem Active 08-04 00:00: 00 [facility] No known active problems No known active problems Disease [facility] Other congenital varus deformitie s of feet, 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, left foot Problem [facility] Allergies, Adverse Reactions, Alerts Allergy Name Allergy Type Status Severity Reaction(s) Onset Date Inactive Date Treating Clinician Comments Source Iodine Allergy to substanc e Active Anaphylaxis 07-17 00:00: 00 [facility] Iodine Propensi ty to adverse reaction s Active Unknown - See comments 12-05 00:00: 00 [facility] Tramadol Propensi ty to adverse reaction s Active Unknown - See comments 12-05 00:00: 00 [facility] TRAMADOL DRUG INGREDI Active Unknown-Cmnt 12-05 00:00: 00 [facility] IODINE DRUG INGREDI Active Unknown-Cmnt 12-05 00:00: 00 [facility] Metformi n Allergy to substanc e Active [place] [facility] ty [facility] Tramadol Allergy to substanc e Active [facility] NO KNOWN ALLERGIE S Drug Class Active [facility] Social History Social Habit Start Date Stop Date Quantity Comments Source Exposure to SARS-CoV-2 (event) Not sure [facility] Sex Assigned At [facility] History of Tobacco Use [facility] Smoking Status Start Date Stop Date Source Light Tobacco Smoker [facility] Never Smoker [facility] Unknown if ever smoked [facility] Medications Ordered Medication Name Filled Medication Name Start Date Stop Date Current Medication? Ordering Clinician Indication Dosage Frequency Signature (SIG) Comments Components Source epinephrine 0.3 mg/0.3 mL injection, auto-inject or INJECT DIRECTED epinephrine 0.3 mg/0.3 mL injection, auto-inject or INJECT DIRECTED 03-21 00:00: 00 No epinephrin e 0.3 mg/0.3 mL injection, auto-injec tor INJECT DIRECTED [facility] HYDROcodone -acetaminop hen (NORCO 5) 5-325 mg tablet 1 tablet 12-05 20:45: 00 12-05 19:39 :00 No 1{tbl} 1 tablet, Oral, ONCE, 1 dose, 12/05/20 at 1545, HAMIDA [facility] amlodipine 5 mg tablet TAKE 1 TABLET BY MOUTH EVERY DAY HOLD IF TOP BLOOD PRESSURE IS ABOVE 110 amlodipine 5 mg tablet TAKE 1 TABLET BY MOUTH EVERY DAY HOLD IF TOP BLOOD PRESSURE IS ABOVE 110 No amlodipine 5 mg tablet TAKE 1 TABLET BY MOUTH EVERY DAY HOLD IF TOP BLOOD PRESSURE IS ABOVE 110 [facility] acetylcyste ine 600 mg capsule Take 1 capsule twice a day by oral route. acetylcyste ine 600 mg capsule Take 1 capsule twice a day by oral route. No 1capsul e(s) BID acetylcyst eine 600 mg capsule Take 1 capsule twice a day by oral route. [facility] albuterol sulfate HFA 90 mcg/actuati on aerosol inhaler Inhale 2 puffs every 4-6 hours by inhalation route. albuterol sulfate HFA 90 mcg/actuati on aerosol inhaler Inhale 2 puffs every 4-6 hours by inhalation route. No 2puff(s ) Q5H albuterol sulfate HFA 90 mcg/actuat ion aerosol inhaler Inhale 2 puffs every 4-6 hours by inhalation route. [facility] amlodipine 5 mg tablet Take 1 tablet every day by oral route for 90 days. amlodipine 5 mg tablet Take 1 tablet every day by oral route for 90 days. No 1 Q1D amlodipine 5 mg tablet Take 1 tablet every day by oral route for 90 days. [facility] EpiPen 2-Timmy 0.3 mg/0.3 mL injection, auto-inject or Take 1 auto as needed by injection route. EpiPen 2-Timmy 0.3 mg/0.3 mL injection, auto-inject or Take 1 auto as needed by injection route. No 1auto(s ) EpiPen 2-Timmy 0.3 mg/0.3 mL injection, auto-injec tor Take 1 auto as needed by injection route. [facility] fenofibrate nanocrystal lized 145 mg tablet Take 1 tablet every day by oral route for 90 days. fenofibrate nanocrystal lized 145 mg tablet Take 1 tablet every day by oral route for 90 days. No 1 Q1D fenofibrat e nanocrysta llized 145 mg tablet Take 1 tablet every day by oral route for 90 days. [facility] No known medications No Un von vee [facility] Vital Signs Vital Name Observation Time Observation Value Comments S ource BP Systolic 2023-03-21 00:00:00 110 mm[Hg] [facility] BMI (Body Mass Index) 2023-03-21 00:00:00 29 kg/m2 [facility] BP Diastolic 2023-03-21 00:00:00 82 mm[Hg] [facility] Body Weight 2023-03-21 00:00:00 3616 [oz_av] [facility] Height 2023-03-21 00:00:00 74 [in_i] [facility] BP Diastolic 2021-08-09 00:00:00 79 mm[Hg] [facility] Height 2021-08-09 00:00:00 74 [in_i] [facility] BMI (Body Mass Index) 2021-08-09 00:00:00 27 kg/m2 [facility] BP Systolic 2021-08-09 00:00:00 136 mm[Hg] [facility] Body Weight 2021-08-09 00:00:00 3360 [oz_av] [facility] BP Diastolic 2021-08-04 00:00:00 89 mm[Hg] [facility] Height 2021-08-04 00:00:00 74 [in_i] [facility] BMI (Body Mass Index) 2021-08-04 00:00:00 26.8 kg/m2 [facility] BP Systolic 2021-08-04 00:00:00 162 mm[Hg] [facility] Body Weight 2021-08-04 00:00:00 3337.6 [oz_av] [facility] Systolic blood pressure 2020-12-05 19:29:00 139 mm[Hg] [facility] Diastolic blood pressure 2020-12-05 19:29:00 84 mm[Hg] [facility] Heart rate 2020-12-05 19:29:00 87 /min [facility] Body temperature 2020-12-05 19:29:00 37.22 [place] Respiratory rate 2020-12-05 19:29:00 18 /min [facility] Body weight 2020-12-05 19:29:00 95.255 kg [facility] Oxygen saturation in Arterial blood by Pulse oximetry 2020-12-05 19:29:00 99 /min [facility] Procedures Procedure Date / Time Performed Performing Clinician Source CONSENT/REFUSAL FOR DIAGNOSIS AND TREATMENT 2020-12-05 19:23:08 Doctor Unassigned, [place] [facility] NOTICE OF PRIVACY PRACTICES 2020-12-05 19:22:35 Doctor Unassigned, [place] [facility] BCPC - PRESCRIPTION / ORDER 2013-11-28 05:01:00 Doctor Unassigned, [place] [facility] Removal of Mariangel [facility] Appendectomy [facility] [place] Knee Surgery [facility] [place] Plan of Care Planned Activity Planned Date Details Comments Source Diagnostic Test Pending 2021-08-09 00:00:00 rapid flu (A+B) [code = rapid flu (A+B)] [facility] Diagnostic Test Pending 2021-08-09 00:00:00 rapid SARS CoV 2 Ag, QL IA, respiratory specimen [code = rapid SARS CoV 2 Ag, QL IA, respiratory specimen] [facility] Instructions [facility] Encounters Start Date/Time End Date/Time Encounter Type Admission Type Attending [facility] Care Facility Care Department Encounter ID Source 2023-12-29 09:47:01 Outpatient AYAH VASYL CLS CLS [id number] Katharina meade 2021-05-16 20:41:43 Emergency [facility] [id number] [facility] 2024-02-26 00:00:00 2024-02-26 00:00:00 (TEL) CLS CLS [id number] Katharina meade 2024-01-30 00:00:00 2024-01-30 00:00:00 Office Visit- Est Pt.- Level 3 CLS CLS [id number] Katharina emade 2023-12-29 00:00:00 2023-12-29 00:00:00 Office Visit- New Pt.- Level 3 CLS CLS [id number] Katharina meade 2023-06-14 00:00:00 2023-06-14 00:00:00 Outpatient [facility] [id number] [place] [facility] 2023-05-10 00:00:00 2023-05-10 00:00:00 Outpatient [facility] [id number] [place] [facility] 2023-05-05 00:00:00 2023-05-05 00:00:00 Outpatient [facility] [id number] [place] [facility] 2023-04-05 00:00:00 2023-04-05 00:00:00 Outpatient [facility] [id number] [place] [facility] 2023-03-21 00:00:00 2023-03-21 00:00:00 Outpatient [facility] [id number] [place] [facility] 2023-03-21 00:00:00 2023-03-21 00:00:00 Rony Ibarra, DO: [address], [place], [place] [address] , Ph. [phone] [facility] CLINIC, DR. IBARRA [id number] [place] [facility] 2023-01-17 00:00:00 2023-01-17 00:00:00 Outpatient [facility] [id number] [place] [facility] 2022-12-13 00:00:00 2022-12-13 00:00:00 Outpatient [facility] [id number] [place] [facility] 2022-11-30 13:11:30 2022-11-30 13:11:30 Outpatient SFA S[facility] [id number] Usman F Markel 2022-11-08 00:00:00 2022-11-08 00:00:00 Outpatient [facility] [id number] [place] [facility] 2022-11-03 13:08:01 2022-11-03 13:08:01 Outpatient SFA SFA [id number] Usman Beatriz Markel 2022-10-27 15:38:51 2022-10-27 15:38:51 Outpatient SFA SFA [id number] Usman Jean Baptiste 2022-10-04 00:00:00 2022-10-04 00:00:00 Outpatient [facility] [id number] [place] [facility] 2022-08-30 00:00:00 2022-08-30 00:00:00 Outpatient [facility] [id number] [place] [facility] 2022-08-30 00:00:00 2022-08-30 00:00:00 Outpatient [facility] [id number] [place] [facility] 2022-07-27 00:00:00 2022-07-27 00:00:00 Outpatient [facility] [id number] [place] [facility] 2021-10-29 03:29:00 2021-10-29 03:29:00 Outpatient [facility] [id number] [place] [facility] 2021-10-29 03:29:00 2021-10-29 03:29:00 Outpatient [facility] [id number] [place] [facility] 2021-09-24 04:03:00 2021-09-24 04:03:00 Outpatient [facility] [id number] [place] [facility] 2021-08-20 04:31:00 2021-08-20 04:31:00 Outpatient [facility] [id number] [place] [facility] 2021-08-09 11:05:00 2021-08-09 11:05:00 Outpatient [facility] [id number] [place] [facility] 2021-08-09 00:00:00 2021-08-09 00:00:00 Outpatient Mable Penny [facility] [id number] 2021-08-09 00:00:00 2021-08-09 00:00:00 Mable Penny 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 [facility] [id number] [place] [facility] 2021-08-04 11:41:00 2021-08-04 11:41:00 Outpatient [facility] [id number] [place] [facility] 2021-08-04 00:00:00 2021-08-04 00:00:00 Mable Penny APRN-RN [facility]GR[facility]-C: [address] [facility], [address], [place] [address] , Ph. [facility] [id number] [facility] 2021-08-04 00:00:00 2021-08-04 00:00:00 Outpatient Mable Penny [facility] [id number] 2021-06-28 11:25:00 2021-06-28 11:25:00 Outpatient MAHOGANY_Noah [facility] [id number] [facility] 2021-06-28 11:25:00 2021-06-28 11:25:00 Outpatient MAHOGANYS [facility] [id number] [facility] 2020-12-05 14:28:00 2020-12-05 15:09:00 Emergency Kayleen Rg [facility] [id number] [facility] 2020-12-05 00:00:00 2020-12-05 00:00:00 Orders Only Doctor Unassigned, [place] [facility] [id number] [facility] 2016-10-06 23:59:00 2016-10-06 23:59:00 Outpatient CAROL KNOWLES [facility] [id number] [facility] 2013-11-28 00:00:00 2013-11-28 00:00:00 Orders Only Doctor Unassigned, [place] [facility] [id number] [facility] Results Test Description Test Time Test Comments Results Result Co mments Source CULTURE, URINE 2022-12-02 13:52:49 SPECIMEN NUMBER: [id number] CULTURE, URINE SPECIMEN NUMBER: [id number] SPECIMEN COMMENT: URINE SOURCE: URINE REPORT STATUS: FINAL FINAL REPORT: 12/02/2022 NO GROWTH AFTER 36 HOURS INCUBATION UNLESS OTHERWISE INDICATED, ALL TESTING PERFORMED AT [facility] [address] [place] [address] OUTREACH REPRESENTATIVE: NANDA GUTIÉRREZ M.D. CLIA NUMBER [id number] [facility] [place] [id number] [facility]
[2024-04-25] MEDS ORDERED: IBUPROFEN 400 MG TAB ONE (17:12)
[2024-04-25] MEDS ORDERED: MORPHINE 4 MG/ML SYR ONE (17:13)
--- NOTE | 2024-04-25 18:07 | RAD REPORT ---
EXAM: Foot Left 3 View HISTORY: PAIN COMPARISON: None FINDINGS: Bones: Transversely oriented fracture at the great toe along the phalangeal tuft. There is only sligh t displacement. Alignment:No significant malalignment. Degenerative changes:None significant. Other: n/a IMPRESSION: Fracture of the great toe phalangeal tuft..
--- NOTE | 2024-04-25 18:20 | EDPHYS ---
Physician Documentation [facility] Name: Aden Jrogensen III Age: 54 yrs Sex: Male : 1970 Arrival Date: 04/25/2024 Time: 16:37 Bed 16 Private MD: ED Physician Calderon Flowers HPI: 04/25 17:10 This 54 yrs old Black Male presents to ER via Wheelchair with complaints of Crush rn Injury To Foot - left. 17:10 The patient presents with an injury, pain, swelling. The complaints affect the left rn foot. Onset: The symptoms/episode began/occurred just prior to arrival. Severity of symptoms: At their worst the symptoms were moderate, in the emergency department the symptoms are unchanged. Patient reports at a scrap yard and large pipe fell on his foot out of truck.. Patient was wearing sneakers. Isolated injury and swelling with pain to dorsum of left midfoot.. Historical: - Allergies: 16:48 tramadol; ko1 16:48 SHELLFISH; ko1 - Home Meds: 16:48 amlodipine 10 mg oral tablet 1 tab daily for hypertension [Active]; ko1 - PMHx: 16:48 Hypertensive disorder; ko1 - PSHx: 16:48 Appendectomy; ko1 - Immunization history:: Adult Immunizations up to date, Last tetanus immunization: < 5 years ago. - Infectious Disease History:: Denies. - Social history:: Smoking status: Patient denies any tobacco usage or history of. - Family history:: not pertinent. - Hospitalizations: : No recent hospitalization is reported. ROS: 17:10 MS/Extremity: Positive for injury and swelling to left foot rn Exam: 17:10 Constitutional: This is a well developed, well nourished patient who is awake, alert, rn appears in pain, ice to the dorsum of the left foot present. MS/ Extremity: Pulses equal, no cyanosis. Neurovascular intact. Moderate swelling to the left mid and distal foot, no open laceration or wound. No cyanosis. Vital Signs: 16:47 BP 143 / 91; Pulse 77; Resp 18; Temp 97.4; Pulse Ox 100% ; ko1 17:30 BP 138 / 87; Pulse 74; Resp 17; Pulse Ox 100% ; me1 18:30 BP 135 / 88; Pulse 72; Resp 17; Temp 98.4; Pulse Ox 100% ; me1 MDM: 16:41 Patient medically screened. rn 18:18 Differential diagnosis: fracture, sprain. Data reviewed: vital signs, nurses notes, rn radiologic studies, plain films. Independent interpretation of the following test(s) in the Emergency Department X-Ray: My interpretation is X-ray left foot images show distal phalanx fracture of the left great toe per my interpretation.. Counseling: I had a detailed discussion with the patient and/or guardian regarding the historical points, exam findings, and any diagnostic results supporting the discharge/admit diagnosis, radiology results, the need for outpatient follow up, to return to the emergency department if symptoms worsen or persist or if there are any questions or concerns that arise at home. Special discussion: I discussed with the patient/guardian in detail that at this point there is no indication for admission to the hospital. It is understood, however, that if the symptoms persist or worsen the patient needs to return immediately for re-evaluation. 04/25 16:59 Order name: XRAY Foot LEFT 3 View; Complete Time: 18:13 rn 04/25 17:01 Order name: Ice; Complete Time: 17:06 rn 04/25 18:18 Order name: Splint: colleen tape left 1st/2nd toes; Complete Time: 18:30 rn 04/25 18:18 Order name: Walking boot; Complete Time: 18:30 rn Administered Medications: 17:17 Drug: Ibuprofen PO 800 mg PO once Route: PO; jb4 17:40 Follow up: Response: No adverse reaction; Pain is decreased me1 17:18 Drug: morphine IM 4 mg IM once Route: IM; Site: left deltoid; jb4 17:40 Follow up: Response: No adverse reaction; Pain is decreased me1 Disposition Summary: 04/25/24 18:19 Discharge Ordered Notes: Location: Home rn Problem: new rn Symptoms: have improved rn Condition: Stable rn Diagnosis - Nondisplaced fracture of distal phalanx of left great toe rn Followup: rn - With: Mert Carter MD - When: As needed - Reason: Recheck today's complaints, Re-evaluation by your physician Discharge Instructions: - Discharge Summary Sheet rn - Toe Fracture rn - Toe Fracture rn lab Forms: - Medication Reconciliation Form rn - Antibiotic ornithology teacher - Prescription Opioid Use rn - Patient Portal Instructions rn - Leadership Thank You Letter rn Prescriptions: - Diclofenac Sodium 75 mg Oral tablet, delayed release (enteric coated) - take 1 tablet ORAL route 2 times per day; 14 tablet; Refills: 0, Product rn Selection Permitted Signatures: Dispatcher [employer] Calderon Stallings MD MD rn Bryson, James, RN RN jb4 Kristin Woodall RN RN ko1 Mayuri Clayton RN me1 Corrections: (The following items were deleted from the chart) 16:50 16:48 Allergies: Iodine; ko1 ko1
--- NOTE | 2024-04-25 18:20 | ER ---
Nurse's Notes [facility] Name: Aden Jorgensen III Age: 54 yrs Sex: Male : 1970 Arrival Date: 04/25/2024 Time: 16:37 Bed 16 Private MD: Diagnosis: Nondisplaced fracture of distal phalanx of left great toe Presentation: 04/25 16:47 Chief complaint: Patient states: a pipe fell off truck onto left foot about an hour ko1 ago. Coronavirus screen: At this time, the client does not indicate any symptoms associated with coronavirus-19. Ebola Screen: No symptoms or risks identified at this time. Initial Sepsis Screen: Does the patient meet any 2 criteria? No. Patient's initial sepsis screen is negative. Does the patient have a suspected source of infection? No. Patient's initial sepsis screen is negative. Risk Assessment: Do you want to hurt yourself or someone else? Patient reports no desire to harm self or others. Onset of symptoms was April 25, 2024. 16:47 Method Of Arrival: Wheelchair ko1 16:47 Acuity: GLENIS 3 ko1 Triage Assessment: 16:48 General: Appears in no apparent distress. uncomfortable, Behavior is calm, cooperative, ko1 appropriate for age. Pain: Complains of pain in left foot. Historical: - Allergies: 16:48 tramadol; ko1 16:48 SHELLFISH; ko1 - Home Meds: 16:48 amlodipine 10 mg oral tablet 1 tab daily for hypertension [Active]; ko1 - PMHx: 16:48 Hypertensive disorder; ko1 - PSHx: 16:48 Appendectomy; ko1 - Immunization history:: Adult Immunizations up to date, Last tetanus immunization: < 5 years ago. - Infectious Disease History:: Denies. - Social history:: Smoking status: Patient denies any tobacco usage or history of. - Family history:: not pertinent. - Hospitalizations: : No recent hospitalization is reported. Screenin:00 [facility] ED Fall Risk Assessment (Adult) History of falling in the last 3 months, me1 including since admission No falls in past 3 months (0 pts) Confusion or Disorientation No (0 pts) Intoxicated or Sedated No (0 pts) Impaired Gait No (0 pts) Mobility Assist Device Used No (0 pt) Altered Elimination No (0 pt) Score/Fall Risk Level 0 - 2 = Low Risk Maintained a safe environment, Provided non-skid footwear, Hourly rounding (assess needs \T\ fall precautionary measures) done. Abuse screen: Denies threats or abuse. Nutritional screening: No deficits noted. Tuberculosis screening: No symptoms or risk factors identified. Assessment: 17:00 General: Appears uncomfortable, well groomed, well developed, well nourished, Behavior me1 is calm, cooperative, appropriate for age, Reports a pipe fell off truck onto left foot. Pain: Complains of pain in left foot Pain does not radiate. Pain currently is 10 out of 10 on a pain scale. Quality of pain is described as sharp, Pain began suddenly, Is continuous. Neuro: Level of Consciousness is awake, alert, obeys commands, Oriented to person, place, time, situation, Appropriate for age. Cardiovascular: Patient's skin is warm and dry. Respiratory: Airway is patent Respiratory effort is even, unlabored, Respiratory pattern is regular, symmetrical. GI: No signs and/or symptoms were reported involving the gastrointestinal system. : No signs and/or symptoms were reported regarding the genitourinary system. EENT: No signs and/or symptoms were reported regarding the EENT system. Derm: Skin is intact, is healthy with good turgor, Skin is pink, warm \T\ dry. Musculoskeletal: Reports pain in left foot. Injury Description: Crush injury sustained to left foot is pipe fell off of truck and onto left foot. Vital Signs: 16:47 BP 143 / 91; Pulse 77; Resp 18; Temp 97.4; Pulse Ox 100% ; ko1 17:30 BP 138 / 87; Pulse 74; Resp 17; Pulse Ox 100% ; me1 18:30 BP 135 / 88; Pulse 72; Resp 17; Temp 98.4; Pulse Ox 100% ; me1 ED Course: 16:39 Patient arrived in ED. im 16:40 Calderon Flowers MD is Attending Physician. rn 16:45 Wound care: ice pack applied. ko1 16:48 Triage completed. ko1 16:48 Arm band placed on right wrist. Patient placed in an exam room, in a wheelchair, on ko1 pulse oximetry, Patient notified of wait time. 17:00 Patient has correct armband on for positive identification. Bed in low position. Call me1 light in reach. Side rails up X2. Provided Education on: POC. Verbalized understanding.. Client placed on continuous cardiac and pulse oximetry monitoring. NIBP monitoring applied. Pulse ox on. NIBP on. 17:00 No provider procedures requiring assistance completed. Patient did not have IV access me1 during this emergency room visit. 17:33 Mayuri Clayton, RN is Primary Nurse. me1 17:56 XRAY Foot LEFT 3 View In Process Unspecified. EDMS 18:18 Mert Carter MD is Referral Physician. rn Administered Medications: 17:17 Drug: Ibuprofen PO 800 mg PO once Route: PO; jb4 17:40 Follow up: Response: No adverse reaction; Pain is decreased me1 17:18 Drug: morphine IM 4 mg IM once Route: IM; Site: left deltoid; jb4 17:40 Follow up: Response: No adverse reaction; Pain is decreased me1 Medication: 17:00 VIS not applicable for this client. me1 Outcome: 18:19 Discharge ordered by . rn 18:39 Discharged to home via wheelchair, with significant other, me1 18:39 Condition: stable 18:39 Discharge instructions given to patient, significant other, Instructed on discharge instructions, follow up and referral plans. medication usage, Demonstrated understanding of instructions, follow-up care, medications, Prescriptions given X 1, 18:39 Patient left the ED. me1 Signatures: Dispatcher [employer] EDHI Calderon Flowers MD MD rn Bryson, James, RN RN jb4 Kristin Woodall RN RN ko1 Phoebe Martínez Mayuri Clayton, RN RN me1 Corrections: (The following items were deleted from the chart) 16:50 16:48 Allergies: Iodine; ko1 ko1 18:13 16:47 Chief complaint: Patient states: a pipe fell off truck onto left foot about an me1 hour ago ko1
[2024-04-25 18:48] VITALS: O2SAT 100
[2024-04-25 18:51] VITALS: BP 135/88; TEMP 98.4
== END 2024-04-25 18:39 | disposition home or self-care (01) ==
LOC: ER 16:37
DX: S92.425A Nondisplaced fracture of distal phalanx of left great toe, initial encounter for closed fracture (principal)